=== PATIENT | female | born 1990 | race American Indian/Alaskan Native ===

== ENCOUNTER 2017-12-25 11:00 | Outpatient (CLI) | payer MEDICAID | END 2017-12-25 11:01 | disposition home or self-care (01) | LOC: SLR 11:00 | PROVIDERS: ATTEND Otolaryngology | DX: G47.33 Obstructive sleep apnea (adult) (pediatric) (principal); D64.9 Anemia, unspecified | CPT/HCPCS: G0399 ==

== ENCOUNTER 2018-09-14 06:08 | Inpatient (IN) | payer MEDICAID ==
[~2018-09-14 06:08] MED LIST: ANCEF/STERILE WATER 2 GM/20 ML 2 GM/20 ML SYRINGE IV NR; FLAGYL 500 MG/100 ML 500 MG/100 ML BAG IV NR; LOVENOX SUB-Q NR; TRANSDERM-SCOP TD SCH
[2018-09-14] MEDS ORDERED: NACL BACTERIOSTATIC INFILTRATI ONE (06:42)
[2018-09-14] MEDS ORDERED: LACTATED RINGERS 1,000 ML IV SCH (07:00)
[2018-09-14] MEDS ORDERED: LOVENOX SUB-Q NR (07:00)
[2018-09-14] MEDS ORDERED: ANCEF/STERILE WATER 2 GM/20 ML IV NR (07:00)
[2018-09-14] MEDS ORDERED: FLAGYL 500 MG/100 ML 500 MG/100 ML BAG IV NR (07:00)
[2018-09-14] MEDS ORDERED: SUBLIMAZE ONE ×2 (07:16→09:31)
[2018-09-14] MEDS ORDERED: DIPRIVAN 10 MG/ML IV ONE (07:17)
[2018-09-14] MEDS ORDERED: XYLOCAINE CARDIAC IV ONE (07:19)
[2018-09-14] MEDS ORDERED: QUELICIN ONE (07:19)
[2018-09-14] MEDS ORDERED: ROBINUL ONE (07:19)
[2018-09-14] MEDS ORDERED: ZEMURON IV ONE (07:19)
[2018-09-14] MEDS ORDERED: NEO SYNEPHRINE/NS Syringe(OR USE) IV ONE (07:19)
--- NOTE | 2018-09-14 07:40 | Anesthesia Day of Surgery ---
Anesthesia Day of Surgery - Day of Surgery Patient Examined: Yes Patient H&P Reviewed: Yes Patient is NPO: Yes Beta Blockers: No Cardiac Clearance: No Pulmonary Clearance: No
--- NOTE | 2018-09-14 07:40 | Anesthesia Consultation ---
Anesthesia Consult and Med Hx - Airway Anesthetic Teeth Evaluation: Good ROM Head & Neck: Adequate Mental/Hyoid Distance: Adequate Mallampati Class: Class II Intubation Access Assessment: Good - Pulmonary Exam CTA: Yes - Pre-Operative Health Status ASA Pre-Surgery Classification: ASA3 Proposed Anesthetic Plan: General - Pulmonary Hx Asthma: No SOB: Yes (WITH EXERTION) Hx Pneumonia: No Hx Sleep Apnea: Yes - Cardiovascular System Hx Hypertension: Yes - Central Nervous System Hx Seizures: No Hx Psychiatric Problems: Yes - Endocrine Hx Renal Disease: No Hx End Stage Renal Disease: No Hx Hypothyroidism: No Hx Hyperthyroidism: No - Hematic Hx Anemia: Yes Hx Sickle Cell Disease: No - Other Systems Hx Alcohol Use: No Hx Substance Use: No Hx Cancer: No Hx Obesity: Yes
[2018-09-14] MEDS ORDERED: SUBLIMAZE IV PRN (07:41)
[2018-09-14] MEDS ORDERED: DILAUDID IV PRN (07:41)
[2018-09-14] MEDS ORDERED: MARCAINE-EPI 0.5%-1:200,000 INFILTRATI ONE ×2 (07:44→08:38)
[2018-09-14] MEDS ORDERED: XYLOCAINE 1% 20 mL ONE (07:44)
[2018-09-14] MEDS ORDERED: TYLENOL PO NR (08:00)
[2018-09-14] MEDS ORDERED: NEURONTIN PO NR (08:00)
[2018-09-14] MEDS ORDERED: XYLOCAINE 1% 20 mL INFILTRATI ONE (08:38)
[2018-09-14] MEDS ORDERED: KETALAR ONE (08:46)
[2018-09-14] MEDS ORDERED: VERSED ONE (09:01)
[2018-09-14] MEDS ORDERED: REGLAN IV PRN (11:29)
[2018-09-14] MEDS ORDERED: ZOFRAN IV PRN (11:29)
[2018-09-14] MEDS ORDERED: APRESOLINE IV PRN (11:29)
[2018-09-14] MEDS ORDERED: DILAUDID ONE (11:36)
--- NOTE | 2018-09-14 13:39 | Operative Report ---
PREOPERATIVE DIAGNOSES: 1. Morbid obesity. 2. Hiatal hernia. POSTOPERATIVE DIAGNOSES: 1. Morbid obesity. 2. Hiatal hernia. OPERATION: 1. Laparoscopic Sampson-en-Y gastric bypass, 150 cm antecolic antegastric. 2. Laparoscopic hiatal hernia repair. 3. Upper endoscopy. 4. Placement 19F KADE drain. ANESTHESIA: General endotracheal anesthesia. COMPLICATIONS: Initial positive leak test requiring placement of a drain. BLEEDING: None. SPECIMEN: None. INDICATIONS: The patient is a 28-year-old female with a history of morbid obesity. She has undergone preoperative bariatric workup and presents for a weight loss operation. The risks, complications, alternatives had been explained to the patient. Informed consent was obtained. DESCRIPTION OF PROCEDURE: The patient was brought to the operating room, where she was placed in the supine position, underwent general endotracheal intubation. She received preoperative antibiotics and DVT prophylaxis. A time-out was called to ensure proper patient identification, operation. Local analgesia was injected around the umbilical region and then a small stab incision was made at the base of the umbilicus with insertion of a Veress needle. Insufflation pressures were achieved to 18 mmHg. The incision was widened and exchanged for a 12 mm trocar. On intra-abdominal view, there was no intra-abdominal injury. An additional 12 mm port was placed to the right of the midclavicular line and then 5 mm ports were placed in the right lateral subxiphoid and left lateral quadrants. The ligament of Treitz was identified and run for 50 cm and then the bowel was transected with a white load stapler and the staple line cauterized for hemostasis. The bowel was then run antegrade to another 150 cm and then a jejunojejunostomy was then performed with another white load stapler. An anti-kink stitch was placed with a 0 Surgidac suture and the mesenteric defect was closed with running 0 Surgidac suture. After this, a liver retractor was placed and the patient was repositioned in steep reverse Trendelenburg. A hiatal dissection was performed revealing the left and right alejandro and a small hiatal hernia. A 30 mL pouch was then created, first utilizing a blunt retrogastric dissection and electrocautery. An anterior cruroplasty was completed with 0 Surgidac suture. A gastrojejunostomy was then completed utilizing medial and lateral stay stitches for anastomosis sites of approximately 30 mm on the stapler. The gastrojejunostomy was closed with a 2-0 V-Loc in 2 running layers. After this, the bowel Sampson limb was clamped and then I went above and did an upper endoscopy. On initial leak test, there were small bubbles evident when I pushed against the candy cane; however, with additional insufflation, I was unable to reproduce this. There was no intraluminal bleeding. Because of the initial bubbles, I did elect to leave a drain. A 19- Lao drain was therefore placed in the left upper quadrant as well as approximately 250 mL of normal saline. The umbilical fascia was closed with a #1 PDS in a Omar-Nancie fashion. All the ports were removed. Additional local was injected into all the wound sites. The wounds were then all closed with 4-0 Monocryl. Sterile bandages were placed over top. The drain was secured in place with 2-0 nylon stitch. The patient was extubated and left the operating room in stable condition. Counts were correct. FINDINGS: 1. A small hiatal hernia. 2. Initial positive leak test on endoscopy, however, was unable to reproduce this and was negative in subsequent test. JOB# [id number] PETTY/SARAH VICTORIA
--- NOTE | 2018-09-14 13:46 | Post Anesthesia Evaluation ---
- Post Anesthesia Evaluation Patient Participated: Yes Airway Patent: Yes Stable Respiratory Function: Yes Nausea/Vomiting: No Temp > 96.8F: Yes Pain Manageable: Yes Adequeate Hydration: Yes Anesthesia Complications: No
[2018-09-14] MEDS: MYLICON PO PRN (17:22)
[2018-09-14] MEDS: DILAUDID IV PRN (17:27)
[2018-09-14] MEDS: NORCO PO PRN (19:57)
[2018-09-14] MEDS: LACTATED RINGERS 1,000 ML IV SCH (21:00)
[2018-09-15] MEDS: NORCO PO PRN ×4 (00:01→12:17)
--- NOTE | 2018-09-15 04:29 | Discharge Summary ---
Providers - Providers Date of Admission: 09/14/18 11:29 Date of discharge: 09/15/18 Attending physician: JOE CHAN Primary care physician: TRUPTI RUSHING Hospitalization Reason for admission: postop care Condition: Good Procedures: 09/14/18: LRYGB, upper endoscopy, HHR, drain placement Hospital course: 28F admitted after her operation for routine postop care. She was managed on the general surgical floor. She had no major issues overnight. c/o pain at drain site. She received KADE drain teaching prior to discharge home. Tolerated a CLD. Asked for a narcotic Rx for home as she lost her prior prescription. Disposition: DC-01 TO HOME OR SELFCARE Core Measure Documentation - Palliative Care Palliative Care/ Comfort Measures: Not Applicable - Core Measures Any of the following diagnoses?: none - VTE Discharge Requirements Deep Vein Thrombosis/Pulmonary Embolism Present on Admission: No - Acute MS Discharge Requirements Aspirin at discharge: No Reason for no aspirin on DC: Surgical contraindication - Heart Failure Discharge Requirements DAVID/ARB for LVSD if EF <40%: Not Applicable Beta luciana at discharge: No Reason for no beta luciana on DC: Medical contraindication - Stroke Discharge Requirements Statin for LDL = or >70 mg/dl on DC: No Exam - Physical Exam Narrative exam: GEN: AAO, appears tired HEART: RRR LUNGS: CTAB ABD: Soft, ND, NT, drain serosanguinous, bandages cdi EXT: NO LE edema - Constitutional Vitals: Temp Pulse Resp BP Pulse Ox 98.7 F 66 18 131/72 98 09/15/18 01:43 09/15/18 01:44 09/15/18 01:43 09/15/18 01:43 09/15/18 01:44 Plan Activity: advance as tolerated Diet: clear liquids Wound: keep clean and dry Special Instructions: no heavy lifting Additional Instructions: F/u Dr Chan as scheduled Follow up with: TRUPTI RUSHING MD [Primary Care Provider] - 7 Days Prescriptions: HYDROcodone/APAP 7.5-325 [[place] 7.5-325 mg per 15 ML] 7.5 mg PO Q4H PRN 3 Days #250 ml PRN Reason: Pain, Moderate (4-6)
[2018-09-15 05:36] LABS: Basophils % (Auto) 0.1 % (0.0-1.8); Hematocrit 35.2 % (30.3-42.9); Hemoglobin 11.5 gm/dl (10.1-14.3); Lymphocytes # (Auto) 1.8 K/mm3 (1.2-5.4); Lymphocytes % (Auto) 14.8 % (13.4-35.0); Mean Corpuscular HGB Conc 33 % (30-34); Mean Corpuscular Volume 75 fl (79-97); Monocytes # (Auto) 0.9 K/mm3 (0.0-0.8); Platelet Count 420 K/mm3 (140-440); Red Blood Count 4.72 M/mm3 (3.65-5.03); Red Cell Distribution Width 17.2 % (13.2-15.2)
[2018-09-15 05:57] LABS: Alanine Aminotransferase 80 units/L (7-56); Albumin 3.7 g/dL (3.9-5); BUN/Creatinine Ratio 8; Blood Urea Nitrogen 5 mg/dL (7-17); Calcium 8.8 mg/dL (8.4-10.2); Hemolysis Index 0
[2018-09-15] MEDS: DILAUDID IV PRN (06:40)
[2018-09-15] MEDS: MYLICON PO PRN (06:52)
[2018-09-15] MEDS: LACTATED RINGERS 1,000 ML IV SCH (06:56)
[2018-09-15] MEDS ORDERED: LOVENOX SUB-Q SCH (08:00)
[2018-09-15 08:31] VITALS: BP 120/67
== END 2018-09-15 13:06 | disposition home or self-care (01) | DRG 327 ==
LOC: OR 06:08 → 3B 11:29
PROVIDERS: ADMIT Specialist; ATTEND Specialist
PROC: 0D164ZA Bypass Stomach to Jejunum, Percutaneous Endoscopic Approach (ICD-10-PCS; principal; 2018-09-14)
PROC: 0BQT4ZZ Repair Diaphragm, Percutaneous Endoscopic Approach (ICD-10-PCS; 2018-09-14)
DX: K44.9 Diaphragmatic hernia without obstruction or gangrene (principal); Z68.42 Body mass index [BMI] 45.0-49.9, adult; E66.01 Morbid (severe) obesity due to excess calories; I50.9 Heart failure, unspecified; J45.909 Unspecified asthma, uncomplicated; K30 Functional dyspepsia; N39.3 Stress incontinence (female) (male); F32.9 Major depressive disorder, single episode, unspecified
CPT/HCPCS: 36415; 80053; 81025; 82962; 85025; 88307; G0378; J0330; J0690; J1170; J1650; J2001; J2250; J2370; J2405; J2704; J2765; J3010; J7120

== ENCOUNTER 2018-12-30 22:45 | Emergency (ER) | payer OTHER, MEDICAID ==
[2018-12-30 22:59] VITALS: BP 115/61
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
== END 2018-12-31 02:35 | disposition home or self-care (01) ==
LOC: ED 22:45
DX: M54.2 Cervicalgia (principal); M25.512 Pain in left shoulder; M25.511 Pain in right shoulder; M62.838 Other muscle spasm; I10 Essential (primary) hypertension; E11.9 Type 2 diabetes mellitus without complications; K21.9 Gastro-esophageal reflux disease without esophagitis; Z98.890 Other specified postprocedural states; Z91.040 Latex allergy status; Z79.899 Other long term (current) drug therapy; V49.49XA Driver injured in collision with other motor vehicles in traffic accident, initial encounter; Y93.89 Activity, other specified; Y92.410 Unspecified street and highway as the place of occurrence of the external cause; Y99.8 Other external cause status

== ENCOUNTER 2019-08-22 07:50 | Emergency (ER) | payer MEDICAID ==
[2019-08-22 08:27] VITALS: BP 103/55
--- NOTE | 2019-08-22 09:33 | Emergency Department Report ---
<SÁNCHEZ BARON - Last Filed: 08/22/19 09:27> - General Chief complaint: Skin/Abscess/Foreign Body Stated complaint: ABSCESS Time Seen by Provider: 08/22/19 09:07 Source: patient Mode of arrival: Ambulatory Limitations: No Limitations - History of Present Illness Initial comments: Patient is a 29-year-old female presents emergency room with complaints of an abscess to the right axilla that began a couple weeks ago. She states initially it was very small but then became larger in size over the last week. She states that today it opened and began draining a purulent material. She denies any fever, nausea, vomiting, diarrhea, chills. She states that she has never had this before. She states her only past medical history is a gastric sleeve. She denies any allergies to medications. - Related Data Previous Rx's Medication Instructions Recorded Last Taken Type HYDROcodone/APAP 7.5-325 [[place] 7.5 mg PO Q4H PRN 3 Days #250 ml 09/15/18 Unknown Rx 7.5-325 mg per 15 ML] Ibuprofen [Motrin 800 MG tab] 800 mg PO Q8HR PRN #20 tablet 12/31/18 Unknown Rx methOCARBAMOL [Robaxin TAB] 500 mg PO BID PRN #15 tab 12/31/18 Unknown Rx Sulfamethoxazole/Trimethoprim 1 each PO BID 10 Days #20 tablet 08/22/19 Unknown Rx [Bactrim DS TAB] Allergies Allergy/AdvReac Type Severity Reaction Status Date / Time Latex, Natural Rubber Allergy Hives Verified 09/09/18 17:17 Abscess Boil HPI - HPI Chief Complaint: Skin/Abscess/Foreign Body Stated Complaint: ABSCESS Time Seen by Provider: 08/22/19 09:07 Home Medications: Previous Rx's Medication Instructions Recorded Last Taken Type HYDROcodone/APAP 7.5-325 [[place] 7.5 mg PO Q4H PRN 3 Days #250 ml 09/15/18 Unknown Rx 7.5-325 mg per 15 ML] Ibuprofen [Motrin 800 MG tab] 800 mg PO Q8HR PRN #20 tablet 12/31/18 Unknown Rx methOCARBAMOL [Robaxin TAB] 500 mg PO BID PRN #15 tab 12/31/18 Unknown Rx Sulfamethoxazole/Trimethoprim 1 each PO BID 10 Days #20 tablet 08/22/19 Unknown Rx [Bactrim DS TAB] Allergies/Adverse Reactions: Allergies Allergy/AdvReac Type Severity Reaction Status Date / Time Latex, Natural Rubber Allergy Hives Verified 09/09/18 17:17 ED Review of Systems Comment: All other systems reviewed and negative ED Past Medical Hx - Past Medical History Previous Medical History?: Yes Hx Hypertension: Yes Hx Congestive Heart Failure: No Hx Diabetes: Yes Hx Deep Vein Thrombosis: No Hx GERD: Yes Hx Renal Disease: No Hx Sickle Cell Disease: No Hx Seizures: No Hx Asthma: No Hx HIV: No Additional medical history: "enlarged heart" - Surgical History Past Surgical History?: Yes Additional Surgical History: Gastric Bypass - Social History Smoking Status: Never Smoker Substance Use Type: None - Medications Home Medications: Home Medications Medication Instructions Recorded Confirmed Last Taken Type HYDROcodone/APAP 7.5-325 [[place] 7.5 mg PO Q4H PRN 3 Days #250 ml 09/15/18 Unknown Rx 7.5-325 mg per 15 ML] Ibuprofen [Motrin 800 MG tab] 800 mg PO Q8HR PRN #20 tablet 12/31/18 Unknown Rx methOCARBAMOL [Robaxin TAB] 500 mg PO BID PRN #15 tab 12/31/18 Unknown Rx Sulfamethoxazole/Trimethoprim 1 each PO BID 10 Days #20 tablet 08/22/19 Unknown Rx [Bactrim DS TAB] ED Physical Exam - General Limitations: No Limitations General appearance: alert, in no apparent distress - Head Head exam: Present: atraumatic, normocephalic - Eye Eye exam: Present: normal appearance - ENT ENT exam: Present: mucous membranes moist - Neurological Exam Neurological exam: Present: alert, oriented X3 - Psychiatric Psychiatric exam: Present: normal affect, normal mood - Skin Skin exam: Present: warm, dry, other (2 cm area of edema and induration present to the right axilla, there is purulent, foul odor drainage present, no surrouding erythema or increased warmth, no necrosis, no blistering) ED Medical Decision Making - Medical Decision Making Patient is a 29-year-old female presents emergency room with complaints of an abscess to the right axilla that began a couple weeks ago. She states initially it was very small but then became larger in size over the last week. She states that today it opened and began draining a purulent material. She denies any fever, nausea, vomiting, diarrhea, chills. She states that she has never had this before. She states her only past medical history is a gastric sleeve. She denies any allergies to medications. vitals are normal. on exam: 2 cm area of edema and induration present to the right axilla, there is purulent, foul odor drainage present, no surrouding erythema or increased warmth, no necrosis, no blistering. Examination consistent with abscess. Manually expressed all drainage, irrigated with saline, scrubbed with Betadine, area is already open and draining on its own. Does not need I&D at this time. Will place patient on Bactrim. Advised patient to please take medication as prescribed. May wash the area with soap and water twice a day and keep dry. No hot tub, no pool, no soa kelley in water. May use warm compresses 3 times a day. Follow-up with a primary care doctor for reexamination. Return to the emergency room immediately for any new or worsening symptoms or any worsening signs of infection despite antibiotic therapy. Please do not shave, wax, or use Solo until this area has completely healed over. Discussed with patient that these may come back and that if it g ets worse she may need an I&D in the future. ED Disposition Clinical Impression: Abscess Disposition: DC-01 TO HOME OR SELFCARE Is pt being admited?: No Does the pt Need Aspirin: No Condition: Stable Instructions: Abscess (ED) Additional Instructions: please take medication as prescribed. May wash the area with soap and water twice a day and keep dry. No hot tub, no pool, no soaking in water. May use warm compresses 3 times a day. Follow-up with a primary care doctor for reexamination. Return to the emergency room immediately for any new or worsening symptoms or any worsening signs of infection despite antibiotic therapy. Please do not shave, wax, or use Solo until this area has completely healed over. Prescriptions: Sulfamethoxazole/Trimethoprim [Bactrim DS TAB] 1 each PO BID 10 Days #20 tablet Referrals: JESSICA TOLEDO MD [Staff Physician] - 2-3 Days [facility] [Outside] - 2-3 Days [facility] [Outside] - 2-3 Days Forms: Work/School Release Form(ED) Time of Disposition: 09:33 Print Language: [place] <SHEAR,MICHELLE S - Last Filed: 08/22/19 11:53> ED Review of Systems ROS: Stated complaint: ABSCESS Other details as noted in HPI ED Course Vital Signs 08/22/19 08/22/19 07:58 08:17 Temperature 98.5 F 98.4 F Pulse Rate 72 66 Respiratory 16 16 Rate Blood Pressure 124/50 103/55 O2 Sat by Pulse 100 100 Oximetry ED Medical Decision Making - Medical Decision Making This patient was evaluated and dispositioned by the advanced practitioner. I was available for consultation. Critical care attestation.: If time is entered above; I have spent that time in minutes in the direct care of this critically ill patient, excluding procedure time. ED Disposition Is pt being admited?: No
== END 2019-08-22 10:18 | disposition home or self-care (01) ==
LOC: ED 07:50
DX: L02.411 Cutaneous abscess of right axilla (principal); I10 Essential (primary) hypertension; K21.9 Gastro-esophageal reflux disease without esophagitis; Z98.890 Other specified postprocedural states; Z98.0 Intestinal bypass and anastomosis status; Z79.899 Other long term (current) drug therapy; Z91.040 Latex allergy status
CPT/HCPCS: 99282

== ENCOUNTER 2022-02-25 06:12 | Day surgery (SDC) | payer MEDICAID ==
[~2022-02-25 06:12] MED LIST changes: +ACETAMINOPHEN 500 MG TAB PO SCH; -ANCEF/STERILE WATER 2 GM/20 ML 2 GM/20 ML SYRINGE IV NR; +CELECOXIB 200 MG CAP PO NR; -FLAGYL 500 MG/100 ML 500 MG/100 ML BAG IV NR; +GABAPENTIN 300 MG CAP PO NR; +LACTATED RINGERS 1,000 ML IV SCH; -LOVENOX SUB-Q NR; +MIDAZOLAM 2 MG/2 ML INJ IV NR; +SCOPOLAMINE TRANSDERMAL PATCH 72 HR TD NR; -TRANSDERM-SCOP TD SCH
--- NOTE | 2022-02-25 06:40 | History and Physical Report ---
History of Present Illness Date of examination: 02/25/22 Date of admission: 02/25/2022 Chief complaint: Sterilization requested History of present illness: 31 yo with a history of Spontaneous vaginal delivery x2 presents for sterilization via bilateral tubal ligation. Consent signed on 12/19/21. Patient has a history of abdominoplasty with 2 subsequent revisions as well as gastric bypass. She has no history of anesthetic complications. She reports no medical problems. She was counseled about the risk of tubal failure being 12/999. Patient was also counseled about the risk of regret being 28%. She verbalized an understanding. Patient was also counseled about the risk of alterations of previous abdominoplasty and she verbalized an understanding. She was offered other forms of contraception such as an IUD, Vaginal ring, Depo provera shot; OCPs however she declined stating that she wanted a tubal ligation. Past History Past Medical History: no pertinent history Past Surgical History: gastric bypass, other (abdominoplasty) Family/Genetic History: none Social history: no significant social history, single, lives with family - Obstetrical History : 2 Medications and Allergies Allergies Allergy/AdvReac Type Severity Reaction Status Date / Time Latex, Natural Rubber Allergy Hives Verified 02/18/22 14:30 Home Medications Medication Instructions Recorded Confirmed Last Taken Type Norethindrone-E.estradiol-Iron 1 each PO QDAY 02/18/22 02/18/22 Unknown History [Junel Fe 1 mg-20 Mcg Tablet] Active Meds: Active Medications Acetaminophen (Acetaminophen 500 Mg Tab) 1,000 mg PO PREOP FAYE Stop: 02/25/22 23:59 Celecoxib (Celecoxib 200 Mg Cap) 200 mg PO PREOP NR Stop: 02/25/22 23:59 Gabapentin (Gabapentin 300 Mg Cap) 300 mg PO PREOP NR Stop: 02/25/22 23:59 Lactated Ringer's (Lactated Ringers) 1,000 mls @ 100 mls/hr IV DIRECT FAYE Stop: 02/25/22 23:59 Midazolam HCl (Midazolam 2 Mg/2 Ml Inj) 2 mg IV PREOP NR Stop: 02/25/22 23:59 Scopolamine (Scopolamine Transdermal Patch 72 Hr) 1 each TD PREOP NR Stop: 02/25/22 23:59 Review of Systems All systems: negative Eyes: deferred Ears, nose, mouth and throat: deferred Breasts: deferred Genitourinary: deferred, normal appearance Rectal Exam: deferred, normal exam-external/orifice Integumentary: other (Abdominoplasty scars mildly keloid) - Physical Exam Breasts: Cardiovascular: Regular rate, Normal S1, Normal S2 Lungs: Positive: Clear to auscultation, Normal air movement Abdomen: Positive: normal appearance, soft, normal bowel sounds. Negative: distention, tenderness Vulva: both: normal Vagina: Positive: normal moisture. Negative: discharge Cervix: Negative: lesion, discharge Uterus: Positive: normal size, normal contour Adnexa: both: normal Anus/Rectum: Positive: normal perianal skin, heme negative. Negative: rectal mass, hemorrhoids Extremities: Deep Tendon Reflex Grade: Normal +2 Results All other labs normal. Assessment and Plan - Patient Problems (1) Encounter for female sterilization procedure Current Visit: Yes Status: Acute Plan to address problem: Bilateral tubal ligation via fulguration or any other indicated procedure. (2) History of abdominoplasty Current Visit: Yes Status: Inactive Plan to address problem: Stable. Plan for incisions will not involve keloid scars (3) History of bariatric surgery Current Visit: Yes Status: Inactive Plan to address problem: Stable. Surgery not planned to involve this area of abdomen however will be vigilant or and avoid scar tissue/adhesions.
--- NOTE | 2022-02-25 07:37 | Anesthesia Consultation ---
Anesthesia Consult and Med Hx Date of service: 02/25/22 - Airway Anesthetic Teeth Evaluation: Good ROM Head & Neck: Adequate Mental/Hyoid Distance: Adequate Mallampati Class: Class II Intubation Access Assessment: Probably Good - Pre-Operative Health Status ASA Pre-Surgery Classification: ASA2 Proposed Anesthetic Plan: General - Pulmonary Hx Respiratory Symptoms: No - Cardiovascular System Hx Hypertension: No - Central Nervous System CVA: No - Endocrine Hx Renal Disease: No Hx Liver Disease: No Hx Insulin Dependent Diabetes: No Hx Non-Insulin Dependent Diabetes: No Hx Thyroid Disease: No - Other Systems Hx Obesity: Yes (BMI 42) - Additional Comments Anesthesia Medical History Comments: No hx anesthetic complications.
--- NOTE | 2022-02-25 07:37 | Anesthesia Day of Surgery ---
Anesthesia Day of Surgery - Day of Surgery Patient Examined: Yes Patient H&P Reviewed: Yes Patient is NPO: Yes
[2022-02-25] MEDS ORDERED: LIDOCAINE MPF (2%) 20 MG/1 ML VIAL 5 ML ONE (07:46)
[2022-02-25] MEDS ORDERED: ROCURONIUM 50 MG/5 ML INJ IV ONE (07:46)
[2022-02-25] MEDS ORDERED: propofoL 200 MG/20 ML VIAL IV ONE (07:47)
[2022-02-25] MEDS ORDERED: oxyCODONE /ACETAMINOPHEN 5-325MG TAB PO PRN (09:00)
[2022-02-25] MEDS ORDERED: HYDROmorphone 0.5 MG/0.5 ML INJ IV PRN (09:00)
[2022-02-25] MEDS ORDERED: ONDANSETRON 4 MG/2 ML INJ IV PRN (09:00)
[2022-02-25] MEDS ORDERED: BUPIVACAINE/PF (0.5%) 5 MG/1 ML 30 ML VIAL INFILTRATI ONE ×3 (09:08→10:40)
[2022-02-25] MEDS ORDERED: dexAMETHasone 20 MG/5 ML VIAL ONE (10:03)
[2022-02-25] MEDS ORDERED: GLYCOPYRROLATE 0.4 MG/2 ML INJ ONE (10:38)
[2022-02-25] MEDS ORDERED: NEOSTIGMINE 10MG/10 ML INJ MDV ONE (10:38)
[2022-02-25] MEDS ORDERED: SODIUM CHLORIDE 0.9% IRR 1,500 ML BOTTLE IR ONE (10:41)
[2022-02-25 15:47] VITALS: BP 109/69
--- NOTE | 2022-02-26 10:55 | Operative Report ---
Operative Report Operative Report: Date of procedure February 25, 2022 Preoperative diagnosis: 1. Encounter for sterilization 2. History of abdominoplasty with 2 revisions 3. History of bariatric surgery Postoperative diagnosis:1. Encounter for sterilization 2. History of abdominoplasty with 2 revisions 3. History of bariatric surgery 4. Status post laparoscopic bilateral tubal ovation via fulguration Procedure: 1. Exam under anesthesia 2. Laparoscopic bilateral tubal ligation via fulguration Surgeon: Kandi Meyer MD Fre[employer] Elevator Erector: None Anesthesia: General IVF: 850 cc lactated Ringer's Urine output: 200 cc clear urine Estimated blood loss: 5 cc Specimens: None Findings: Exam under anesthesiaanteverted uterus freely mobile no masses palpated; normal liver edge normal-appearing gallbladder; stomach edge not visualized; normal cervix; fimbriated end of left fallopian tube adhesed to posterior portion of uterus; fimbriated end of right fallopian tube clubbed. Procedure in detail: After being fully consented and made aware of the risks and benefits of the procedure as well as answering all of her questions and also making her aware of the 12/999 risk of after tubal ligation, and it being most likely an ectopic , patient was taken to the operating room where she was placed in dorsal supine position. After the appropriate timeout was taken general anesthesia was administered. Once this was done she was then examined under anesthesia and the pelvic exam indicated an anteverted uterus freely mobile no masses. She was then prepped and draped in a normal sterile fashion. A bivalve speculum was placed vaginally with good visualization of the normal-appearing cervix the anterior portion was manipulated with a single-tooth tenaculum. The uterus was then sounded and found to be approximately 9 cm. A kroner uterine manipulator was adjusted accordingly and placed in the uterus for manipulation during the laparoscopic portion of the procedure. The bivalve speculum was removed legs were lowered and patient was placed in a flattened position. Gloves were changed and attention was then turned turned towards the laparoscopic portion of the procedure. A curvilinear incision was made with an 11 blade scalpel beneath the keloid umbilical scar carefully making an effort not to involve this area. Once this was done, the underlying fatty tissue was undermined with a hemostat down to the fascia. Once this 10 mm incision was made a 10 mm operative scope was used to enter the abdominal cavity under direct visualization while tenting up on the abdominal wall with towel clamps. Once entry was confirmed the abdomen was insufflated with 4 L of carbon dioxide gas under 15 millimeters mercury pressure. The patient was placed in Trendelenburg position and the uterine manipulator was used to bring the uterus into view prior to being attached to the machine, the Kleppinger forceps were used to isolate the fallopian tube on the left and the fallopian tube on the on the right. The fallopian tube on the left was noted to be adhesed to the uterus at the fimbriated end. The fallopian tube on the right was noted to be clubbed. The [facility] forcep device was then hooked up to the machine and the left fallopian tube was displaced anteriorly to avoid any contact with the bowel and it was cauterized in 3 consecutive places approximately 2 cm away from the corner of the uterus. The right fallopian tube was cauterized in a similar fashion. The liver and the gallbladder were observed to be normal appearing. The procedure was therefore deemed complete the abdominal cavity was evacuated of carbon dioxide gas via the umbilical port after the instruments were removed. Patient was flattened out from Trendelenburg position and the umbilical incision was repaired whereby the deep fascia was repaired with 0 Vicryl suture on a UR 6 needle while tenting up with Allis clamps on the fascia so as to avoid the bowel. This was done with excellent hemostasis. The skin was then reapproximated using 3-0 Monocryl suture in a subcuticular fashion with excellent hemostasis. Dermabond glue was placed for added reinforcement. Patient was successfully extubated and returned to the recovery room in stable condition and later discharged. This procedure was proctored by Dr. Lynda Hernandez.
--- NOTE | 2022-02-26 11:01 | Discharge Summary ---
Providers - Providers Date of Admission: 02/25/22 Date of discharge: 02/25/22 Attending physician: JOHN Andino Primary care physician: TRUPTI RUSHING Hospitalization Reason for admission: Sterilization Condition: Good Pertinent studies: None Procedures: Laproscopic bilateral tubal ligation-fulguration Hospital course: none Disposition: 01 HOME / SELF CARE / HOMELESS Final Discharge Diagnosis (Prints w/discharge instructions): Status post laparoscopic bilateral tubal ligation via fulguration - Discharge Diagnoses (1) Encounter for female sterilization procedure Status: Acute Comment: Uncomplicated (2) History of abdominoplasty Status: Inactive Comment: Stable (3) History of bariatric surgery Status: Inactive Comment: Stable Core Measure Documentation - Palliative Care Palliative Care/ Comfort Measures: Not Applicable - Core Measures Any of the following diagnoses?: none - VTE Discharge Requirements Deep Vein Thrombosis/Pulmonary Embolism Present on Admission: No - Acute [place] Discharge Requirements Aspirin at discharge: No Reason for no aspirin on DC: Surgical contraindication DAVID/ARB for LVSD if EF <40%: Not Applicable Beta luciana at discharge: No Statin for LDL = or >100 mg/dl on DC: Not Applicable - Heart Failure Discharge Requirements DAVID/ARB for LVSD if EF <40%: Not Applicable - Stroke Discharge Requirements Statin for LDL = or >70 mg/dl on DC: Not Applicable Anticoag for atrial fib/atrial flutter: Not Applicable Exam - Constitutional Vitals: Temp Pulse Resp BP Pulse Ox 98.6 F 61 18 109/69 100 02/25/22 13:00 02/25/22 13:00 02/25/22 13:00 02/25/22 13:00 02/25/22 13:00 General appearance: Present: no acute distress, well-nourished - EENT Eyes: Present: PERRL ENT: hearing intact, clear oral mucosa - Neck Neck: Present: supple, normal ROM - Respiratory Respiratory effort: normal Respiratory: bilateral: CTA - Cardiovascular Heart Sounds: Present: S1 & S2. Absent: rub, click - Extremities Extremities: pulses symmetrical, No edema Peripheral Pulses: within normal limits - Abdominal General gastrointestinal: Present: soft, non-tender, non-distended, normal bowel sounds Female genitourinary: Present: normal - Integumentary Integumentary: Present: clear, warm, dry - Musculoskeletal Musculoskeletal: gait normal, strength equal bilaterally - Psychiatric Psychiatric: appropriate mood/affect, intact judgment & insight - Neurologic Neurologic: CNII-XII intact, moves all extremities Plan Activity: advance as tolerated Weight Bearing Status: Non-Weight Bearing Diet: regular Wound: open to air, keep clean and dry, remove dressing (48 hours) Plan of Treatment: Return to clinic in 2 week for incision check Health Concerns: None Assessment: 31 yo s/p uncomplicate bilateral tubal ligation via fulguration. Follow up with: JOHN GODOY MD [Staff Physician] - 7 Days TRUPTI RUSHING MD [Primary Care Provider] - 7 Days Forms: Work/School Excuse Out Patient, Outpatient Surgery DC Inst. Prescriptions: oxyCODONE /ACETAMINOPHEN [Percocet 5/325 mg] 1 tab PO ONCE PRN #30 tablet PRN Reason: Pain, Moderate (4-6) Pending Studies None
== END 2022-02-25 06:13 | disposition home or self-care (01) ==
LOC: OR 06:12
PROVIDERS: ATTEND Obstetrics & Gynecology
DX: Z30.2 Encounter for sterilization (principal); E78.00 Pure hypercholesterolemia, unspecified; K21.9 Gastro-esophageal reflux disease without esophagitis; E66.9 Obesity, unspecified; F32.9 Major depressive disorder, single episode, unspecified; F41.9 Anxiety disorder, unspecified; Z79.899 Other long term (current) drug therapy; Z91.040 Latex allergy status; Z88.8 Allergy status to other drugs, medicaments and biological substances; Z98.891 History of uterine scar from previous surgery; Z87.440 Personal history of urinary (tract) infections; Z98.890 Other specified postprocedural states; Z83.3 Family history of diabetes mellitus; Z86.2 Personal history of diseases of the blood and blood-forming organs and certain disorders involving the immune mechanism; Z82.49 Family history of ischemic heart disease and other diseases of the circulatory system; Z68.41 Body mass index [BMI] 40.0-44.9, adult
CPT/HCPCS: 58670; 81025; J1100; J1170; J1815; J2250; J2405; J2704; J2710; J3490; J7120